=== PATIENT | male | born 1965 | race Caucasian/White ===

== ENCOUNTER 2019-03-21 10:23 | Outpatient (CLI) | payer OTHER ==
[2019-03-21] MEDS ORDERED: LIDOCAINE-MPF 1%, 5ML ONE (11:25)
== END 2019-03-21 23:59 | disposition home or self-care (01) ==
LOC: RAD 10:23
PROVIDERS: ATTEND Surgery
DX: R59.9 Enlarged lymph nodes, unspecified (principal); C73 Malignant neoplasm of thyroid gland
CPT/HCPCS: 10005; 19084; 38505; 76942; 88172; 88173; 88333; 88341; 88342